=== PATIENT | female | born 1990 | race Caucasian/White ===

== ENCOUNTER 2024-01-19 16:06 | Emergency (ER) | payer MEDICAID ==
[2024-01-19 16:37] VITALS: BP 138/91; PULSE 83
[2024-01-19] MEDS: Acetaminophen 500 MG Tab PO ONE (17:14)
[2024-01-19] MEDS: Ibuprofen 800 MG Tab PO ONE (17:14)
== END 2024-01-19 17:21 | disposition home or self-care (01) ==
LOC: MW.ED 16:06
DX: Z02.89 Encounter for other administrative examinations (principal); Z88.0 Allergy status to penicillin; Z88.8 Allergy status to other drugs, medicaments and biological substances; Z90.49 Acquired absence of other specified parts of digestive tract
CPT/HCPCS: 99283; A9270

== ENCOUNTER 2024-02-18 00:39 | Emergency (ER) | payer MEDICAID ==
[2024-02-18 01:00] VITALS: BP 126/83; PULSE 88
== END 2024-02-18 00:58 ==
LOC: MW.ED 00:39
DX: I07.1 Rheumatic tricuspid insufficiency (principal); Z88.0 Allergy status to penicillin; Z88.8 Allergy status to other drugs, medicaments and biological substances; Z91.030 Bee allergy status
CPT/HCPCS: 99283

== ENCOUNTER 2024-10-21 08:55 | Emergency (ER) | payer MEDICAID ==
[2024-10-21 10:18] LABS: BASOPHILS ABSOLUTE AUTO 0.05 K/uL (0.00-0.20); BASOPHILS PERCENT AUTO 0.5 % (0.0-1.0); EOSINOPHILS ABSOLUTE AUTO 0.13 K/uL (0.00-0.45); EOSINOPHILS PERCENT AUTO 1.4 % (0.0-6.0); HEMOGLOBIN 12.6 g/dL (12.0-16.0); IMMATURE GRAN ABSOLUTE AUTO 0.02 K/uL (0.00-0.05); IMMATURE GRAN PERCENT AUTO 0.2 % (0.0-0.4); LYMPHOCYTES ABSOLUTE AUTO 1.59 K/uL (1.00-4.80); LYMPHOCYTES PERCENT AUTO 16.9 % (24.0-44.0); MEAN CORPUSCULAR HEMOGLOBIN 27.3 pg (28.0-32.0); MEAN CORPUSCULAR HGB CONC 32.3 g/dL (32.0-36.0); MEAN CORPUSCULAR VOLUME 84.4 fL (83.0-99.0); MEAN PLATELET VOLUME 8.8 fL (9.4-12.3); MONOCYTES ABSOLUTE AUTO 0.57 K/uL (0.00-0.80); NEUTROPHILS ABSOLUTE AUTO 7.07 K/uL (1.80-7.70); PLATELET COUNT,PLT 395 K/uL (150-400); RED BLOOD CELL COUNT 4.62 M/uL (4.10-5.30); WHITE BLOOD CELL COUNT,WBC 9.43 K/uL (3.9-11.3)
[2024-10-21 10:49] LABS: BLOOD UREA NITROGEN,BUN 10 mg/dL (7.0-18.0); CALCIUM 9.2 mg/dL (8.5-10.1); CHLORIDE,CL 99 mmol/L (98-107); CREATININE 0.9 mg/dL (0.6-1.0); EST CRCL DRUG DOSING (CG) 62.07 mL/min; GLUCOSE RANDOM 83 mg/dL (74-106); POTASSIUM,K 4.4 mmol/L (3.5-5.1); SODIUM,NA 136 mmol/L (136-145)
[2024-10-21 10:53] LABS: ESTIMATED GFR 85 mL/min (>60)
[2024-10-21 13:22] VITALS: BP 110/76; PULSE 85
== END 2024-10-21 13:25 | disposition home or self-care (01) ==
LOC: MW.ED 08:55
DX: R07.89 Other chest pain (principal); Z91.030 Bee allergy status; Z88.0 Allergy status to penicillin; Z88.8 Allergy status to other drugs, medicaments and biological substances; Z90.49 Acquired absence of other specified parts of digestive tract
CPT/HCPCS: 36415; 71046; 71046-26; 80048; 84484; 85025; 85379; 93005; 99283; 99285

== ENCOUNTER 2025-02-28 02:51 | Emergency (ER) | payer MEDICAID ==
[2025-02-28] MEDS: Amoxicillin/Clavulanate K 875-125 MG Tab PO ONE (03:50)
[2025-02-28 04:05] VITALS: BP 116/79; PULSE 79
== END 2025-02-28 04:05 | disposition home or self-care (01) ==
LOC: MW.ED 02:51
DX: S09.93XA Unspecified injury of face, initial encounter (principal); K04.7 Periapical abscess without sinus; Z87.891 Personal history of nicotine dependence; Z79.899 Other long term (current) drug therapy; Z91.030 Bee allergy status; Z88.0 Allergy status to penicillin; Z88.8 Allergy status to other drugs, medicaments and biological substances; X58.XXXA Exposure to other specified factors, initial encounter
CPT/HCPCS: 99283; A9270